=== PATIENT | female | born 1945 | race Caucasian/White ===

== ENCOUNTER 2018-09-11 18:19 | Emergency (ER) | payer MEDICARE, BC, OTHER ==
--- OUTSIDE RECORDS SUMMARY | 2018-09-11 18:45 | XMS REPORT | Continuity of Care Document ---
:1945 External Reference #:[id number] Author Name Gabrielle Stack MD Address [address] [place] [address] Care Team Providers Name Role Phone Deedee Francis MD, PHD Care Team Information Aoc Plans Intelligence Officer Unavailable Deedee Francis MD, PHD Primary Care Physician Unavailable Payers Date Identification Numbers Payment Provider Subscriber Policy Number: [id number] Medicare Mary Tejada PayID: [id number] [address] [place] [address] Policy Number: [id number] [facility] Mary Tejada PayID: [id number] [address] [place] [address] Policy Number: [id number] for Life [facility] Giovanni Tejada II PayID: [id number] [address] [place] [address] Problems Active Problems Provider Date Panic disorder without agoraphobia Deedee Francis MD, PHD Onset: 07/27/2018 Gastro-esophageal reflux disease with Deedee Francis MD, PHD Onset: 2018 esophagitis Tobacco user Deedee Francis MD, PHD Onset: 07/27/2018 Chronic pain syndrome Deedee Francis MD, PHD Onset: 07/27/2018 Vitamin D deficiency Deedee Francis MD, PHD Onset: 07/27/2018 Opioid dependence in remission Deedee Francis MD, PHD Onset: 07/27/2018 Chronic obstructive lung disease Deedee Francis MD, PHD Onset: 07/27/2018 Social History Type Date Description Comments Sex Unknown Lives With Daughter Temperary Diet Patient follows no dietary restrictions Occupation Disabled Hand Dominance Right-handed ADL's/IADL's Requires assistance with ambulating ADL's/IADL's Requires assistance with bathing ADL's/IADL's Requires assistance with dressing ADL's/IADL's Requires assistance with standing ADL's/IADL's Requires assistance with toileting ADL's/IADL's Requires assistance with grooming Tobacco Use Start: Unknown End: Quit Unknown Smoking Status Reviewed: 08/26/18 Quit ETOH Use Denies alcohol use Tobacco Use Start: Unknown End: Patient is a former smoker quit 4 months ago Unknown Allergies, Adverse Reactions, Alerts Active Allergies Reaction Severity Comments Date Sulfa Drugs rash, hands and feet swell 07/27/2018 Erythromycin rash, itching, thoroat closes 07/27/2018 Macrodantin rash 07/27/2018 Ceftin anylphlaxis 07/27/2018 Lyrica can not breath 07/27/2018 Levaquin ankle pain 07/27/2018 Varenicline Nausea 07/27/2018 Codeine Facial swelling 07/27/2018 Shellfish-Derived Products 07/27/2018 Polymyxin B 07/27/2018 Lidopatch Nausea Moderate 07/27/2018 Hydrocodone 07/27/2018 Medications Active Medications SIG Qnty Indications Ordering Provider Date Albuterol Sulfate nebulized every 180ml J44.9 Deedee Francis, 07/31/2018 4-6 hours as , PHD (2.5mg/3ML) 0.083% needed for Nebulizer shortness of breath R09.02 D3 Maximum Strength 1 cap by mouth every 90caps G89.4 Deedee Francis, day , PHD 5000Unit Capsules B12 Fast Dissolve tab by mouth every 90tabs G89.4 Deedee Francis, 2018 5000mcg day , PHD Tablets Dispers Amlodipine Besylate 1 by mouth every day 90tabs Deedee Francis, 2018 10mg , PHD Tablets Morphine Sulfate 0.25-1 ml by mouth 50units G89.4 Deedee Francis, 2018 (Concentrate) every 4 hours as MD PHD 10mg/0.5ML needed Solution Pantoprazole Sodium Take 1 Tablet By 90tabs K21.0 Deedee Francis, 2018 20mg Mouth Every Day , PHD Tablets DR Espinoza Allergy 10 milliliters by 472ml Deedee Francis, Childrens mouth every 6 hours MD PHD 12.5mg/5ML Liquid as needed for allergy Nitroglycerin s.l. as needed every Unknown 0.4mg Tablets 5 min for chest Sub pain, can repeat up to 3 times Nystatin 20 milliliters Unknown [id number]/ML gargle and spit Suspension three times a day when has thrush Nicotine Transdermal apply one daily for 42units Deedee Francis, System Step 1 12 hours, refrain MD PHD 21mg/24HR from smoking while Patches 24HR wearing patch, rotate sites Tylenol 2 tab by mouth three Unknown 325mg Capsules times per day as needed Lorazepam 1/2-1 tab by mouth 90tabs J44.9 Deedee Francis, 1mg Tablets every 6 hours as , PHD needed for panic only F41.0 Plavix 1 by mouth every day 90tabs Deedee Francis, 75mg Tablets PHD CARLOS Senna S 2 tablets by mouth 120tabs Deedee Francis, 8.6-50mg Tablets twice a day as needed MD PHD for constipation Metoprolol Succinate 1 by mouth every day 90tabs Deedee Francis, ER PHD CARLOS 50mg Tablets ER 24HR Lexapro 3 by mouth every day 90tabs Deedee Francis, 10mg Tablets PHD CARLOS Clonidine HCL Take 1 Tablet By Mouth 180tabs Deedee Francis, 0.1mg Twice Daily MD PHD Tablets History Medications Ipratropium [place] Use 1 Vial Via 937.5units J44.9 Penny, 07/27/2018 - Nebulizer Every 6 MD Deedee, 08/11/2018 0.02% Solution Hours as Needed PHD For Shortness Of Breath Budesonide Use 1 Vial Via 360units J44.9 Penny, 07/27/2018 - 0.5mg/2ML Nebulizer Twice MD Deedee, 08/04/2018 Suspension Daily PHD Protonix 1 by mouth every 30tabs K21.0 Penny, 07/27/2018 - 20mg Tablets day MD Deedee, 07/27/2018 DR PHD Hernandezfrsheryl 1 tab by mouth Unknown - 4mg Tablets three times a day 07/27/2018 as needed for nausea Ipratropium inhale the Unknown - [place]/Albuterol contents of one 07/27/2018 Sulfate vial via nebulizer every 8 hours as 0.5-2.5(3)mg/3ML needed for Solution shortness of breath Albuterol Sulfate nebulized every Unknown - 4-6 hours as 07/27/2018 (2.5mg/3ML) 0.083% needed Nebulizer Fentanyl 1 patch every 72 Unknown - 25mcg/HR hours 07/27/2018 Patches 72HR Fentanyl 1 patch every 72 Unknown - 12mcg/HR hours 07/27/2018 Patches 72HR Dexamethasone take 1 tab twice a Unknown - 4mg day for 07/27/2018 Tablets inflamation Mucinex 1 tab by mouth Unknown - 600mg Tablets twice a day 07/27/2018 ER 12HR congestion take with lots of fluids Omeprazole 1 by mouth every Unknown - 20mg day 07/27/2018 Capsules Amlodipine Besylate 1 by mouth every Unknown - day 07/27/2018 5mg Tablets Metoprolol Succinate 1 by mouth every Unknown - ER day 07/27/2018 25mg Tablets ER 24HR Vital Signs Date Vital Result Comment 08/26/2018 2:01pm BP Systolic Sitting Right Arm 101 mmHg BP Diastolic Sitting Right Arm 65 mmHg Body Temperature 97.9 F Heart Rate 96 /min Height 62.5 inches 5'2.50" [place] body weight in kilograms 51 kg O2 % BldC Oximetry 99 % Pain Level 7 07/27/2018 2:37pm BP Systolic 119 mmHg BP Diastolic 78 mmHg Body Temperature 98.0 F Heart Rate 90 /min Respiratory Rate 18 /min Height 62.5 inches 5'2.50" Weight 129.00 lb BMI (Body Mass Index) 23.2 kg/m2 BSA (Body Surface Area) 1.60 m2 [place] body weight in kilograms 51 kg O2 % BldC Oximetry 99 % Results Test Date Facility Test Result H/L Range Note Xray 08/26/[address] [facility] - Orthopedic RMP, Foot, RT, Ap, < pending> [address] [facility] lat & oblique ([address] [place] [address] view) [phone] Xray 08/26/[address] [facility] - Orthopedic RMP, Ankle, LT, Ap, <pending> [address] [facility] lat & mortise ([address] [place] [address] View) [phone] Procedures Date Code Description Status 08/26/2018 50109 Radiology, Foot, Complete-3 Views Completed 08/26/2018 69041 Radiology, Ankle Complete Completed Encounters Type Date Location Provider Dx Diagnosis Office Visit 07/27/2018 [facility] Deedee Francis, J44.9 Chronic obstructive 2:30p Jake Sotelo MD, PHD pulmonary disease, unspecified F11.21 Opioid dependence, in remission E55.9 Vitamin D deficiency, unspecified G89.4 Chronic pain syndrome F17.200 Nicotine dependence, unspecified, uncomplicated K21.0 Gastro-esophageal reflux disease with esophagitis F41.0 Panic disorder [episodic paroxysmal anxiety] Plan of Treatment Future Appointment(s):09/08/2018 3:45 pm - Gabrielle Stack MD at [facility]0109/04/2018 3:30 pm - Deedee Francis MD, PHD at [facility]08/26/2018 - Gabrielle Stack, MDS82.402D Unspecified fracture of shaft of left fibula, subsequent encM79.671 Pain in right footNew Xrays:RMP, Ankle, LT, Ap, lat & mortise (3 View), Scheduled: 09/07/18
--- OUTSIDE RECORDS SUMMARY | 2018-09-11 18:45 | XMS REPORT | Continuity of Care Document ---
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 Deedee Francis MD, PHD Primary Care Physician Unavailable Payers Date Identification Numbers Payment Provider Subscriber Policy Number: [id number] Medicare Mary Tejada PayID: [id number] [address] [place] [address] Policy Number: [id number] [facility] Mary Tejada PayID: [id number] [address] [place] [address] Policy Number: [id number] for Life [facility] Giovanni Tejada II PayID: [id number] [address] [place] [address] Problems Active Problems Provider Date Panic disorder [...] to 3 times Nystatin 20 milliliters Unknown [id number]/ML gargle and spit Suspension three times a [...] Daily MD PHD Tablets History Medications Ipratropium [place] Use 1 Vial Via 937.5units J44.9 Penny, 07/27/2018 - Nebulizer Every 6 MD Deedee, 08/11/2018 0.02% Solution Hours as Needed PHD For Shortness Of Breath Budesonide Use 1 Vial Via 360units J44.9 Penny, 07/27/2018 - 0.5mg/2ML Nebulizer Twice MD Deedee, 08/04/2018 Suspension Daily Protonix 1 by mouth every 30tabs K21.0 Penny, 07/27/2018 - 20mg Tablets day MD Deedee, 07/27/2018 DR PHD Hernandezfrsheryl 1 tab by mouth Unknown - 4mg Tablets three times a day 07/27/2018 as needed for nausea Ipratropium inhale the Unknown - [place]/Albuterol contents of one 07/27/2018 Sulfate vial via [...] 24HR Vital Signs Date Vital Result Comment 09/08/2018 3:53pm BP Systolic 121 mmHg BP Diastolic 76 mmHg Body Temperature 98.8 F Heart Rate 94 /min Height 62.5 inches 5'2.50" [place] body weight in kilograms 51 kg O2 % BldC Oximetry 98 % 2L 08/26/2018 2:01pm BP Systolic Sitting Right Arm 101 mmHg BP Diastolic Sitting Right Arm 65 mmHg Body Temperature 97.9 F Heart Rate 96 /min Height 62.5 inches 5'2.50" [place] body weight in kilograms 51 kg O2 % BldC Oximetry 99 % Pain Level 7 07/27/2018 2:37pm BP Systolic 119 mmHg BP Diastolic 78 mmHg Body Temperature 98.0 F Heart Rate 90 /min Respiratory Rate 18 /min Height 62.5 inches 5'2.50" Weight 129.00 lb BMI (Body Mass Index) 23.2 kg/m2 BSA (Body Surface Area) 1.60 m2 [place] body weight in kilograms 51 kg O2 % BldC Oximetry 99 % Results Test Date Facility Test Result H/L Range Note Xray 09/08/2018 [facility] - Orthopedic RMP, Ankle, LT, Ap, <pending> [address] [facility] lat & mortise ([address] [place] [address] View) [phone] Procedures Date Code Description Status 09/08/2018 65083 Radiology, Ankle Complete Completed 08/26/2018 50296 Radiology, Foot, Complete-3 Views Completed 08/26/2018 26479 Radiology, Foot, Complete-3 Views Completed 08/26/2018 26974 Radiology, Ankle Complete Completed 08/26/2018 58494 Radiology, Ankle Complete Completed Encounters Type Date Location Provider Dx Diagnosis Office Visit 07/27/2018 [facility] Deedee Francis, J44.9 Chronic obstructive 2:30p Jake Sotelo MD, PHD pulmonary disease, unspecified F11.21 Opioid dependence, in remission E55.9 Vitamin D deficiency, unspecified G89.4 Chronic pain syndrome F17.200 Nicotine dependence, unspecified, uncomplicated K21.0 Gastro-esophageal reflux disease with esophagitis F41.0 Panic disorder [episodic paroxysmal anxiety] Plan of Treatment Future Appointment(s):09/22/2018 3:15 pm - Gabrielle Stack MD at [facility] Tltyrf3609/08/2018 - Gabrielle Stack MDS82.402D Unsp fx shaft of left fibula, subs for clos fx w routn healNew Xrays:RMP, Ankle, LT, Ap, lat & mortise (3 View), Scheduled: 09/22/18
--- NOTE | 2018-09-11 19:17 | UC ---
Respiratory Complaint HPI - HPI Summary HPI Summary: Per infection control practitioner: "here with daughter/Irish--pt was hospitalized x3 days, at [facility] in July for pneumonia, currently staying with her daughter -c/o coughing/wheezing, shortness of breath" -she absolutely refsues to go to ER. she felt well while she was on doxy and prednisone and her sx returned a few days after the prescriptiosn were completed. she was in hospice from Mar-May d/t H1N1 admission ICU [facility] . she signed out AMA per dtr bc she was doing "great". then she fell and frx' d her ankle. denies CP. no fevers. uses duoneb neb. used alb at 1600 PM. -continues to smoke - History of Current Complaint Chief Complaint: UCGeneralIllness Stated Complaint: COUGH,CONGESTION Pain Intensity: 9 - Allergies/Home Medications Allergies/Adverse Reactions: Allergies Allergy/AdvReac Type Severity Reaction Status Date / Time cefuroxime [From Ceftin] Allergy Unknown Unknown Verified 09/11/18 19:27 Reaction Details codeine Allergy Unknown Unknown Verified 09/11/18 19:27 Reaction Details erythromycin base Allergy Unknown Unknown Verified 09/11/18 19:27 Reaction Details hydrocodone Allergy Unknown Unknown Verified 09/11/18 19:27 Reaction Details levofloxacin [From Levaquin] Allergy Unknown Unknown Verified 09/11/18 19:27 Reaction Details lidocaine [From LidoPatch] Allergy Unknown Unknown Verified 09/11/18 19:27 Reaction Details menthol [From LidoPatch] Allergy Unknown Unknown Verified 09/11/18 19:27 Reaction Details nitrofurantoin Allergy Unknown Unknown Verified 09/11/18 19:27 [From Macrodantin] Reaction Details polymyxin B Allergy Unknown Unknown Verified 09/11/18 19:27 Reaction Details pregabalin [From Lyrica] Allergy Unknown Unknown Verified 09/11/18 19:27 Reaction Details shellfish derived Allergy Unknown Unknown Verified 09/11/18 19:27 Reaction Details Sulfa (Sulfonamide Allergy Unknown Unknown Verified 09/11/18 19:27 Antibiotics) Reaction Details varenicline [From Chantix] Allergy Unknown Unknown Verified 09/11/18 19:27 Reaction Details Home Medications: Home Medications Acetaminophen [Tylenol] 2 tab PO TID PRN 09/11/18 [History Confirmed 09/11/18] Albuterol 2.5MG/3ML (0.083%)* [Ventolin 2.5 MG/3 ML NEB.KORY*] 2.5 mg INH Q4H PRN 09/11/18 [History Confirmed 09/11/18] Cholecalciferol (Vitamin D3) [Vitamin D3] 5,000 unit PO DAILY 09/11/18 [History Confirmed 09/11/18] Clopidogrel TAB* [Plavix TAB*] 75 mg PO DAILY 09/11/18 [History Confirmed ] Cyanocobalamin (Vitamin B-12) [Vitamin B12] 5,000 mcg PO DAILY 09/11/18 [ History Confirmed 09/11/18] Escitalopram Oxalate [Lexapro 10 mg] 30 mg PO DAILY 09/11/18 [History Confirmed 09/11/18] Ipratropium 0.5MG/2.5ML NEB* [Atrovent 0.5 MG NEB.KORY*] 0.5 mg INH Q4H PRN 09/11 [History Confirmed 09/11/18] LORazepam TAB(*) [Ativan 1 MG TAB (*)] 0.1 - 1 tab PO Q6H PRN 09/11/18 [History Confirmed 09/11/18] Metoprolol Succinate [Toprol Xl] 50 mg PO DAILY 09/11/18 [History Confirmed ] Morphine Sulfate 10 Mg/0.5 0.25 - 1 ml Q4H PRN 09/11/18 [History Confirmed 09/11] Nitroglycerin TAB 0.4 MG* 0.4 mg SL Q5M PRN 09/11/18 [History Confirmed 09/11/18 ] Nystatin SUSPENSION* 100,000 unit MT TID PRN 09/11/18 [History Confirmed ] Pantoprazole TAB (NF) [Protonix TAB (NF)] 20 mg PO DAILY 09/11/18 [History Confirmed 09/11/18] Senna TAB* [Senokot TAB*] 2 tab PO BID PRN 09/11/18 [History Confirmed 09/11/18] amLODIPine TAB* [Norvasc 5 mg TAB*] 10 mg PO DAILY 09/11/18 [History Confirmed 09/11/18] cloNIDine TAB* [Catapres 0.1 MG TAB*] 0.1 mg PO BID 09/11/18 [History Confirmed 09/11/18] diphenhydrAMINE HCl [Benadryl LIQUID 12.5 MG/5 ML] 10 ml PO Q6H PRN 09/11/18 [ History Confirmed 09/11/18] fentaNYL PATCH 12 MCG/HR * [Duragesic Patch 12 Mcg/Hr *] 12 mcg TRANSDERM Q72H 09/11/18 [History Confirmed 09/11/18] fentaNYL PATCH 25 MCG/HR* [Duragesic PATCH 25 Mcg/Hr*] 25 mcg TRANSDERM Q72H [History Confirmed 09/11/18] PMH/Surg Hx/FS Hx/Imm Hx Previously Healthy: No Cardiovascular History: Cardiac Disease, Other - subclavian steal Respiratory History: COPD - Surgical History Surgical History: Yes Surgery Procedure, Year, and Place: cardiac stents. left side/subclavian steal syndrome. hernia repair. hysterectomy. gallbladder - Family History Known Family History: Positive: Hypertension - Social History Alcohol Use: None Substance Use Type: None Smoking Status (MU): Light Every Day Tobacco Smoker Type: Cigarettes Amount Used/How Often: 5-6 cigs daily Review of Systems All Other Systems Reviewed And Are Negative: Yes Constitutional: Positive: Fatigue Skin: Positive: Negative. Negative: Rash Eyes: Positive: Negative ENT: Positive: Sinus Pain/Tenderness. Negative: Sore Throat, Ear Ache Respiratory: Positive: Shortness Of Breath, Cough Cardiovascular: Positive: Negative. Negative: Chest Pain Gastrointestinal: Positive: Negative Motor: Positive: Negative Neurovascular: Positive: Negative Musculoskeletal: Positive: Other: - left ankle pain Neurological: Positive: Negative Psychological: Positive: Negative Is Patient Immunocompromised?: No Physical Exam Triage Information Reviewed: Yes Appearance: Thin, Cachectic - appears chroncially ill, wearing 2.5 L NC O2 Vital Signs: Initial Vital Signs Temp 97.9 F 09/11/18 18:48 Pulse 82 09/11/18 18:48 Resp 18 09/11/18 18:48 BP 139/79 09/11/18 18:48 Pulse Ox 98 09/11/18 18:48 Vital Signs Reviewed: Yes Eye Exam: Normal ENT: Positive: TMs normal. Negative: Nasal congestion, Nasal drainage Neck exam: Normal Neck: Positive: Supple, Nontender, No Lymphadenopathy Respiratory: Positive: No respiratory distress - speaking full sentences and doesnt appear to be in any resp distress., No accessory muscle use, Decreased breath sounds, Wheezing - thorughout Cardiovascular Exam: Normal Cardiovascular: Positive: RRR Abdominal Exam: Normal Abdomen Description: Positive: Soft Musculoskeletal Exam: Normal Musculoskeletal: Positive: Other: - minimal left ankle stress Neurological Exam: Normal Psychological Exam: Normal Skin Exam: Normal Respiratory Course/Dx - Course Course Of Treatment: CXR read by myslef : LLL chronci changes vs infiltrate (they reprt that he left lower lobe is "folded in on itself"). chronic COPD changes. tehy are aware that official read will be tomorrow by RAD but being treated as if it is pneumonia -she is adamant that she refuses to go to hospitalk she had terrible experience lasttime bc of len call lynn and needed help w/ trx to commode for ankle frx . -they understand risk of if symptoms worsen and not approrpitaely managed. will dc home w/ doxy adn prednisone per her request. will do 40mgs daily x 5 d. f/u will be needed in a few days - this is stressed to them. ER if sx worsen or no better -cont duoneb and alb - Differential Dx/Diagnosis Differential Diagnosis/HQI/PQRI: Exacerbation Of COPD, Lower Resp Infection Provider Diagnosis: COPD with exacerbation Discharge - Sign-Out/Discharge Documenting (check all that apply): Patient Departure All imaging exams completed and their final reports reviewed: No - Discharge Plan Condition: Stable Disposition: HOME Prescriptions: Doxycycline Monohydrate 100 mg PO BID #20 cap predniSONE [Prednisone 20 MG TAB] 40 mg PO DAILY 5 Days #10 tablet Patient Education Materials: COPD (Chronic Obstructive Pulmonary Disease) (ED) Referrals: Deedee Francis MD [Primary Care Provider] - 3 Days Additional Instructions: -Make sure to take a probiotic daily while on antibiotics to help prevent a potential complication of antibiotic use called c diff. Some well known brands that can be found OTC are florastor, align and Healthy Harvest. Make sure to complete the entire prescription unless advised otherwise by your health care provider. -We discussed risks of prednisone including but not limited to anxiety, agitation, insomnia, GI upset, elevated blood pressures and blood sugar readings , adrenal crisis and avascular necrosis of the hip. -We recommend that you go to the ER if your symptoms do not improve in the next 1-2 days or if your symptoms worsen. -The chest xray will be read tomorrow by a radiologist. Regardless, you are being treated the same as if you had pneumonia. - Billing Disposition and Condition Condition: STABLE Disposition: Home
--- NOTE | 2018-09-12 10:42 | UC ---
- Progress Note Progress Note: CXR official read is neg for pneumonia. chronic COPD changes. -no change in management Course/Dx - Diagnoses Provider Diagnoses: COPD with exacerbation Discharge - Sign-Out/Discharge Documenting (check all that apply): Post-Discharge Follow Up All imaging exams completed and their final reports reviewed: Yes - Discharge Plan Condition: Stable Disposition: HOME Prescriptions: Doxycycline Monohydrate 100 mg PO BID #20 cap predniSONE [Prednisone 20 MG TAB] 40 mg PO DAILY 5 Days #10 tablet Patient Education Materials: COPD (Chronic Obstructive Pulmonary Disease) (ED) Referrals: Deedee Francis MD [Primary Care Provider] - 3 Days Additional Instructions: -Make sure to take a probiotic daily while on antibiotics to help prevent a potential complication of antibiotic use called c diff. Some well known brands that can be found OTC are florastor, align and i-Neumaticos. Make sure to complete the entire prescription unless advised otherwise by your health care provider. -We discussed risks of prednisone including but not limited to anxiety, agitation, insomnia, GI upset, elevated blood pressures and blood sugar readings , adrenal crisis and avascular necrosis of the hip. -We recommend that you go to the ER if your symptoms do not improve in the next 1-2 days or if your symptoms worsen. -The chest xray will be read tomorrow by a radiologist. Regardless, you are being treated the same as if you had pneumonia. - Billing Disposition and Condition Condition: STABLE Disposition: Home
== END 2018-09-11 20:08 | disposition home or self-care (01) ==
LOC: UCCORT 18:19
DX: F17.210 Nicotine dependence, cigarettes, uncomplicated (principal); J44.1 Chronic obstructive pulmonary disease with (acute) exacerbation; Z88.1 Allergy status to other antibiotic agents; G45.8 Other transient cerebral ischemic attacks and related syndromes; Z98.61 Coronary angioplasty status
CPT/HCPCS: 71046; 99202; G0463